=== PATIENT | male | born 1955 | race Caucasian/White ===

== ENCOUNTER → 2017-07-28 | Outpatient (CLI) | payer OTHER ==
[~2017-07-28] MED LIST: ALLOPURINOL 10100 M1 PO; ANDRODERM1 EAC3 TOP; ASPIRIN EC81 M1 PO; CARVEDILOL12.5 MG PO; CENTRUM SILVER1 EAC2 PO; CORTEF10 MG PO; COZAAR 25 MG TA25 M1 PO; LEVOTHYROXIN0.088 MG PO; LEVOTHYROXINE; LOSARTAN; POTASSIUM; PREDNISONE; VYTORIN 10-401 EACH PO; ZETIA10 MG PO; ZOCOR 10 MG TAB10 MG; ZOCOR20 MG PO; [UNRECOGNIZED DRUG - OTHER]; carbatrol; potassium chloride PO
--- NOTE | 2017-07-28 10:39 | EKG ---
[place] [address] ELECTROCARDIOGRAM REPORT Name: MARY JANE ALVARADO Room: [facility]#: [id number] Admission: 07/28/17 Attend Phys: Bin Stein MD Discharge: Date of : 57 Report #: [id number] THIS REPORT FOR: //name// [facility] Test Date: 2017-07-28 Test Time: 08:52:30 Pat Name: MARY JANE ALVARADO Department: Room: Gender: M Sales Support Advisor: : [id number] Requested By: Bin Stein Order Number: [id number] Reading MD: Rajesh Madden Measurements Intervals [place] Rate: 57 P: 51 WV: 141 QRS: 75 QRSD: 108 T: 60 QT: 461 QTc: 449 Interpretive Statements Sinus bradycardia Compared to ECG 09/21/2016 11:49:54 No significant changes Electronically Signed On 07-28-2017 10:39:05 MANAGER ELECTRONIC by Rajesh Madden [email or web address] <ELECTRONICALLY SIGNED> By: Rajesh Madden MD, [facility] 07/28/17 [id number] Rajesh Madden MD, FACC /EPI
== END ==
LOC: M.CRD 08:14
DX: Z01.818 Encounter for other preprocedural examination (principal); Z85.51 Personal history of malignant neoplasm of bladder